=== PATIENT | female | born 1995 | race Caucasian/White ===

== ENCOUNTER → 2016-11-13 | Emergency (ER) | payer OTHER ==
[~2016-11-13] MED LIST: ONDA4 PO; PROM25TA5 PO
--- NOTE | 2016-11-13 17:21 | PD ---
HPI Chief Complaint confirmation of viability w/ ultrasound Date Seen: Nov 13, 2016 Time Seen: 16:45 (Nigel Miller MD R1) Travel History International Travel<30 Days: No Contact w/Intl Traveler<30Days: No (Nigel Miller MD) History of Present Illness HPI 21 y/o female at 19 weeks presents to ED from [facility] for confirmation of viability and ultrasound sent back with her. She has a history of subutex abuse, was taking 2mg daily. She was detoxing and then relapsed to Dilaudid, which she was sent to [facility]. She was released today. Was seen a week ago for a ultrasound with Dr. Villalobos. Denies any problems with this , no complaints today, just needed to be confirmed by [facility]. Denies vaginal bleeding, loss of fluids, contractions. Endorses movement. Denies any chest pain, SOB, abdominal pain, leg pain/swelling. Para: 1 : 3 : 1 (Nigel Miller MD) History Past Medical History Medical History: Denies Significant Hx (Nigel Miller MD) Obstetric History Obstetric History - at term - (Nigel Miller MD) Past Surgical History Surgical History: No Previous Surgery (Nigel Miller MD) Family History Family History: Negative (Nigel Miller MD) Social History Alcohol Use: No Tobacco Use: No Substance Abuse: Yes (Nigel Miller MD) Allergies-Medications (Allergen,Severity, Reaction): Coded Allergies: Bee Sting (Verified Allergy, Severe, Swelling, 11/29/13) Cat Dander (Verified Allergy, Severe, Swelling, 11/29/13) Dust (Verified Allergy, Severe, Swelling, 11/29/13) Home Meds Active Scripts Promethazine 25 mg (Phenergan 25 mg)25 Mg Tab25 Mg PO Q6H PRN (NAUSEA) #10 TAB Prov:Nani Brown MD 11/13/13 Ondansetron Hcl (Zofran 4 Mg Tab)4 Mg Tab4 Mg PO q6h PRN (NAUSEA) #10 TAB Prov:Nani Brown MD 11/13/13 Review of Systems General / Constitutional: Weight Gain, No: Fever, Chills Eyes: No: Pain HENT: No: Headaches Cardiovascular: No: Irregular Rhythm, Chest Pain or Discomfort, Palpitations Respiratory: No: Cough, Short of Breath Gastrointestinal: No: Nausea, Vomiting, Diarrhea, Abdominal Pain, Constipation Genitourinary: Pelvic Pain, No: Urgency, Frequency, Dysuria Musculoskeletal: No: Limited ROM, Weakness Skin: No Rash, No Itching Neurologic: No: Weakness, Dizziness Psychiatric: No: Anxiety, Depression (Nigel Miller MD R1) Physical Exam Narrative GENERAL: Well-nourished, well-developed patient. SKIN: Warm and dry. HEAD: Normocephalic and atraumatic. EYES: No scleral icterus. No injection or drainage. ENT: No nasal drainage noted. Mucous membranes pink. Airway patent. NECK: Supple, trachea midline. No JVD. CARDIOVASCULAR: Regular rate and rhythm without murmurs, gallops, or rubs. RESPIRATORY: Breath sounds equal bilaterally. No accessory muscle use. ABDOMEN/GI: Abdomen soft, non-tender, bowel sounds present, no rebound, no guarding Gravid to 19 weeks size Uterine Contractions: none EXTREMITIES: No cyanosis or edema. BACK: Nontender without obvious deformity. No CVA tenderness. NEUROLOGICAL: Awake and alert. Motor and sensory grossly within normal limits. Five out of 5 muscle strength in all muscle groups. Normal speech. (Nigel Miller MD R1) Data Data Vital Signs Reviewed: Yes (Nigel Miller MD R1) [facility] Medical Record Reviewed: Yes Interpretation(s) 21 y/o at 19 weeks presents from [facility] for confirmation of viability/ultrasound. Denies any other complaints. FHT 145. No contractions on monitor. Viable Vital signs stable Ultrasound was done last week in Dr. Rai's office. Plan - Continue care - is viable with positive heart tones - Ultrasound done last week, positive for IUP - Follow-up with Dr. Monaco - Return to ED if worsening symptoms, signs of labor (Nigel Miller MD R1) Attending Attestation 19 weeks with substance abuse Patient en route to [facility] for detox and will f/u at [facility] care with Dr. Benitez, last seen one week ago with normal US Here for viability check. +FHR No concerns or complaints. D/c into attendants custody. (Rach Sierra MD) Diagnosis Diagnosis: Primary Impression: 19 weeks gestation of Additional Impressions: Viable Qualified Code: Z34.92 - Viable , second trimester High risk due to maternal drug abuse in second trimester Disposition: 01 DISCHARGE HOME Condition: Stable Patient Instructions: General Instructions Nigel Miller MD R1 Nov 13, 2016 17:21 Rach Sierra MD Nov 13, 2016 21:15
== END | disposition home or self-care (01) ==
LOC: HOBED 16:01
DX: O26.92 Pregnancy related conditions, unspecified, second trimester (principal); O09.892 Supervision of other high risk pregnancies, second trimester; Z3A.19 19 weeks gestation of pregnancy
CPT/HCPCS: 99284

== ENCOUNTER 2017-02-23 12:15 | Emergency (ER) | payer OTHER ==
[~2017-02-23] VITALS: Ht 160 cm; Wt 88.9 kg
[2017-02-23 13:00] VITALS: PULSE 92
[2017-02-23] MEDS ORDERED: LACTATED RINGER'S 1000 ML INJ 1,000 ML IV ONE (13:00)
[2017-02-23] MEDS ORDERED: DEXTROSE 5%-LACTATED RING INJ 1,000 ML IV ONE (13:00)
--- NOTE | 2017-02-23 13:03 | PD ---
HPI Chief Complaint Nausea, vomiting, abdominal pain Travel History International Travel<30 Days: No Contact w/Intl Traveler<30Days: No Known Affected Area: No History of Present Illness HPI 21y/o , IPUP at 34w records reviewed, PNC complicated by: 1. IVDA 2. Hep C positive 3. Prior C/S 4. Living at [facility] 5. h/o EAB 6. h/o tobacco but d/c BUFA Patient presents c/o onset of N/V and abdominal pain last night at 6pm. She denies any abnormal food ingestion but reports that several other women at [facility] where she lives have recently been ill with the same type of illness. She denies any F/C. She denies any diarrhea. She reports she has been unable to tolerate any po since 6pm and last threw up on her way here. SHe reports the abdominal cramping is mostly left lower quadrant but has some radiation to her side. She denies any urinary complaints but reports she has been unable to void all day. She reports normal and good FM. She denies any painful ctx or uterine cramping. She denies any LOF or VB. Para: 1 : 3 : 1 History Past Medical History Narrative Medical Hep C from h/o IVDA Obstetric History Obstetric History FT C/S x1 SAB x1 Past Surgical History Narrative Surgical C/S Tonsillectomy Drainage of renal abscess Family History Narrative Family History DM COPD Social History Narrative Social History Denies tobacco at this time but h/o tobacco use Denies EtOH H/o marijuana H/o IVDA Allergies-Medications (Allergen,Severity, Reaction): Coded Allergies: Bee Sting (Verified Allergy, Severe, Swelling, 02/23/17) Cat Dander (Verified Allergy, Severe, Swelling, 02/23/17) Dust (Verified Allergy, Severe, Swelling, 02/23/17) Home Meds No Active Prescriptions or Reported Meds Review of Systems Except as stated in HPI: all other systems reviewed are Neg (See HPI) Gastrointestinal: Nausea, Vomiting, Abdominal Pain Physical Exam Narrative VSS AF, A&Ox3 GENERAL: Well-nourished, well-developed patient. SKIN: Warm and dry. HEAD: Normocephalic and atraumatic. EYES: No scleral icterus. No injection or drainage. ENT: No nasal drainage noted. Mucous membranes pink. Airway patent. NECK: Supple, trachea midline. No JVD. CARDIOVASCULAR: Regular rate and rhythm without murmurs, gallops, or rubs. RESPIRATORY: Breath sounds equal bilaterally. No accessory muscle use. BREASTS: Deferred. ABDOMEN/GI: Abdomen soft, non-tender, bowel sounds present, no rebound, no guarding Gravid GENITOURINARY: Deferred Uterine Contractions: [-] FHT's: Category: [-] Baseline: [-] Reactive: [-] Variability: [-] Decels: [-] EXTREMITIES: No cyanosis or edema. BACK: Nontender without obvious deformity. No CVA tenderness. NEUROLOGICAL: Awake and alert. Motor and sensory grossly within normal limits. Five out of 5 muscle strength in all muscle groups. Normal speech MS grossly normal ROM, gait, muscle strength PSYCH: grossly normal memory/affect SKIN: warm/dry, no rashes/lesions noted. Data Data Orders Dextrose 5%-Lactated Ring Inj (D5-Lr Inj (02/23/17 13:00) Lactated Ringer's 1000 Ml Inj (Lr 1000 M (02/23/17 13:00) Vital Signs (Adult) .ON ADMISSION (02/23/17 12:57) ^ Labor Status (02/23/17 12:57) Urinalysis - C+S If Indicated (02/23/17 12:57) ^ Non Stress Test (02/23/17 12:57) Cbc No Diff, Includes Plts (02/23/17 12:57) Comprehensive Metabolic Panel (02/23/17 12:57) Ondansetron Inj (Zofran Inj) (02/23/17 13:00) MDM Plan A/P: 21y/o 1. IUP at 34w 2. N/V consistent with gastroenteritis: patient feels significantly better after 2L IVF and IV Zofran. Patient was able to tolerate a po challenge after IVF/Zofran. K 3.6 (low normal), will Rx KCL 20meq tonight and repeat in am. Encourage BRAT diet and other foods that are easily tolerated like toast, chicken noodle soup, etc. Strict N/V precautions. Rx called into [facility]. 3. IVDA: at [facility] 4. hepatitis C 5. wellbeing: reassuring testing with reactive NST, FHR reassuring and appropriate for gestational age 6. F/U with primary Ob in 2-3d or sooner if needed 7. prior C/S: to be scheduled for repeat 8. BUFA 9. Tobacco d/c Diagnosis Diagnosis: Primary Impression: 34 weeks gestation of Additional Impression: Gastroenteritis Disposition: DISCHARGE HOME Scripts No Active Prescriptions or Reported Meds Patient Instructions: Abdominal Pain in (ED), Nausea and Vomiting in (ED), Labor (ED) Additional Instructions: BRAT diet Kcl 20meq tonight and in am with crackers as tolerated Zofran ODT 4mg q6h as needed FKC daily F/U with primary OB in 2-3d or sooner if needed Sofy Jay MD Feb 23, 2017 13:03
[2017-02-23 13:05] VITALS: PULSE 88
[2017-02-23 13:06] VITALS: BP 114/61; PULSE 97
[2017-02-23 13:10] VITALS: PULSE 93
[2017-02-23 13:13] VITALS: RESP 18; TEMP 99.1
[2017-02-23] MEDS ORDERED: ONDANSETRON HCL 4 MG/2 ML VIAL IV ONE (13:30)
[2017-02-23 13:53] LABS: MEAN CELL VOLUME 85.5 FL (80.0-100.0); MEAN CORPUSCULAR HEMOGLOBIN 29.7 PG (27.0-34.0); MEAN CORPUSCULAR HGB CONC 34.8 % (32.0-36.0); PLATELET COUNT 164 TH/MM3 (150-450); RED BLOOD COUNT 4.33 MIL/MM3 (4.00-5.30); RED CELL DISTRIBUTION WIDTH 13.3 % (11.6-17.2); REVIEW FLAG FINAL
[2017-02-23 14:15] LABS: ANION GAP 10 MEQ/L (5-15); AST (GOT) 13 U/L (15-37); BICARBONATE 22.6 MEQ/L (21.0-32.0); BLOOD UREA NITROGEN 11 MG/DL (7-18); CHLORIDE 104 MEQ/L (98-107); GLOMERULAR FILTRATION RATE 204 ML/MIN (>89); POTASSIUM 3.6 MEQ/L (3.5-5.1); SODIUM (NA) 137 MEQ/L (136-145)
[2017-02-23 14:16] LABS: ALT (GPT) 13 U/L (10-53)
[2017-02-23 14:18] LABS: ALKALINE PHOSPHATASE 83 U/L (45-117); TOTAL BILIRUBIN ADULT 0.4 MG/DL (0.2-1.0)
--- NOTE | 2017-02-23 14:56 | HHI.PR ---
Subjective Remarks NST report Indication: IUP at34w, N/V/Dehydration, h/o IVDA Baseline: 140s Variability: good, moderate LTV with good accels and no decels CTX: no regular ctx Reactive NST Final dx: IUP at 34w, gastroenteritis, reassuring testing F/U as clinically indicated Objective Vital Signs Date Time Temp Pulse Resp B/P Pulse Ox O2 Delivery O2 Flow Rate FiO2 02/23/17 13:13 99.1 18 02/23/17 13:10 93 02/23/17 13:06 97 114/61 02/23/17 13:05 88 02/23/17 13:00 92 Result Diagram: 02/23/17 1325 02/23/17 1325 Sofy Jay MD Feb 23, 2017 14:56
[2017-02-23 15:08] LABS: BLOOD, URINE NEG (NEG); COMMENT (UR) CULT NOT INDICATED; CULTURE IF INDICATED CULT NOT INDICATED; GLUCOSE,URINE 1000 mg/dL (NEG); KETONE, URINE 80 mg/dL (NEG); MUCUS URINE FEW /lpf (OCC); NITRITE,URINE NEG (NEG); SQUAMOUS EPITHELIAL CELL URINE 1 /hpf (0-5); URINE COLOR YELLOW (YELLW/STRAW)
[2017-04-16] MEDS ORDERED: IBUP-232 PO (15:23)
[2017-05-06] MEDS ORDERED: LEVO1IUD4 (14:03)
[2017-05-06] MEDS ORDERED: METR-1 PO (14:03)
== END 2017-02-23 16:55 | disposition home or self-care (01) ==
LOC: HOBED 12:15
DX: O98.413 Viral hepatitis complicating pregnancy, third trimester (principal); O26.893 Other specified pregnancy related conditions, third trimester; B19.20 Unspecified viral hepatitis C without hepatic coma; E86.0 Dehydration; K52.9 Noninfective gastroenteritis and colitis, unspecified; Z3A.34 34 weeks gestation of pregnancy; Z87.891 Personal history of nicotine dependence
CPT/HCPCS: 59025; 80053; 81001; 85027; 96374; 99284; J2405; J3010; J7120; J7121

== ENCOUNTER 2017-04-02 09:52 | Inpatient (IN) | payer OTHER ==
[2017-04-02] VITALS (20 sets, daily range): BP systolic 111–129; BP diastolic 58–72; PULSE 68–95; RESP 16–20; TEMP 97.8–99.2; O2SAT 98–100
[~2017-04-02] VITALS: Ht 162.6 cm; Wt 90.7 kg
[2017-04-02] MEDS ORDERED: LACTATED RINGER'S 1000 ML INJ 1,000 ML IV ONE (10:30)
[2017-04-02] MEDS ORDERED: OXYTOCIN 10 UNIT/ML AMP ONE (10:52)
--- NOTE | 2017-04-02 11:18 | HHI.HP ---
HPI Chief Complaint Scheduled Date Seen: Apr 02, 2017 (Darell Walters MD R2) Travel History International Travel<30 Days: No Contact w/Intl Traveler<30Days: No (Darell Walters MD R2) History of Present Illness HPI Ms. Saab is a 21-year-old at 39 weeks gestation presenting for scheduled repeat . Patient [facility]. thus far has been uncomplicated. Her consult was completed by Dr. Jay on 03/18/17. Of note past medical history significant for hepatitis C. Per patient last viral load was undetectable and she has not received treatment. She has a history of IV drug abuse including this . She states that she used IV Dilaudid during the first trimester , and then was transitioned to Subutex by Dr. Hopkins during the beginning of the second trimester. Patient was weaned off Subutex and has been medication 44 over 4 months. Postoperatively she wishes to avoid narcotics as much as possible. She endorses good movement and denies any vaginal bleeding, discharge, or loss of fluid. She denies any fevers, chills, shortness of breath , chest pain, NVD, abdominal pain, or calf tenderness including a complete review of systems. Of note, baby will be taken for adoption after the . (Darell Walters MD R2) History Past Medical History Narrative Medical Hepatitis C s/p IV drug abuse with Dilaudid during first trimester Obesity (Darell Walters MD R2) Obstetric History Obstetric History First - elective without complication Second - uncomplicated full-term due to failure to progress Third - uncomplicated thus far (IV drug abuse during first trimester, weaned to Subutex, medication 4 months greater than 4 months post per patient (Darell Walters MD R2) Past Surgical History Narrative Surgical Uncomplicated Uncomplicated tonsillectomy (Darell Walters MD R2) Family History Narrative Family History Diabetes mellitus, lung cancer, CAD (Darell Walters MD R2) Social History Narrative Social History Patient endorses no alcohol use during . Patient endorses less than a pack per day smoking during first trimester, currently not smoking. Patient endorses first trimester IV drug abuse with Dilaudid, was weaned to Subutex during second trimester, and currently is off all medications for the past 4 months per patient. She denies diagnosis of previous endocarditis. (Darell Walters MD R2) Allergies-Medications (Allergen,Severity, Reaction): Coded Allergies: bee venom protein (honey bee) (Unverified Allergy, Severe, Swelling, ) cat dander (Unverified Allergy, Severe, Swelling, 03/25/17) house dust (Unverified Allergy, Severe, Swelling, 03/25/17) Home Meds No Active Prescriptions or Reported Meds Review of Systems Except as stated in HPI: all other systems reviewed are Neg (Darell Walters MD R2) Physical Exam Vital Signs Date Time Temp Pulse Resp B/P (MAP) Pulse Ox O2 Delivery O2 Flow Rate FiO2 04/02/17 10:43 98.4 04/02/17 10:43 18 04/02/17 10:40 72 04/02/17 10:36 70 111/68 (82) 04/02/17 10:35 73 Narrative GENERAL: Well-nourished, well-developed patient. SKIN: Warm and dry. HEAD: Normocephalic and atraumatic. EYES: No scleral icterus. No injection or drainage. ENT: No nasal drainage noted. Mucous membranes pink. Airway patent. NECK: Supple, trachea midline. No JVD. CARDIOVASCULAR: Regular rate and rhythm without murmurs, gallops, or rubs. RESPIRATORY: Breath sounds equal bilaterally. No accessory muscle use. ABDOMEN/GI: Abdomen soft, non-tender, bowel sounds present, no rebound, no guarding Gravid to 39 FHT's: Category: 1 Baseline: 140s Reactive: Positive Variability: Moderate Decels: Negative EXTREMITIES: No cyanosis or edema. BACK: Nontender without obvious deformity. No CVA tenderness. NEUROLOGICAL: Awake and alert. Motor and sensory grossly within normal limits. Five out of 5 muscle strength in all muscle groups. Normal speech. (Darell Walters MD R2) Caprini VTE Risk Assessment Caprini VTE Risk Assessment: Mod/High Risk (score >= 2) Caprini Risk Assessment Model Point Value = 1 Point Value = 2 Point Value = 3 Point Value = 5 Age 41-60 Minor surgery BMI > 25 kg/m2 Swollen legs Varicose veins or History of unexplained or recurrent spontaneous Oral contraceptives or hormone replacement Sepsis (< 1 month) Serious lung disease, including pneumonia (< 1 month) Abnormal pulmonary function Acute myocardial infarction Congestive heart failure (< 1 month) History of inflammatory bowel disease Medical patient at bed rest Age 61-74 Arthroscopic surgery Major open surgery (> 45 min) Laparoscopic surgery (> 45 min) Malignancy Confined to bed (> 72 hours) Immobilizing plaster cast Central venous access Age >= 75 History of VTE Family history of VTE Factor V Leiden Prothrombin [id number] Lupus anticoagulant Anticardiolipin antibodies Elevated serum homocysteine Heparin-induced thrombocytopenia Other congenital or acquired thrombophilia Stroke (< 1 month) Elective arthroplasty Hip, pelvis, or leg fracture Acute spinal cord injury (< 1 month) Prophylaxis Regimen Total Risk Factor Score Risk Level Prophylaxis Regimen 0-1 Low Early ambulation 2 Moderate Order ONE of the following: *Sequential Compression Device (SCD) *Heparin 5000 units SQ BID 3-4 Higher Order ONE of the following medications: *Heparin 5000 units SQ TID *Enoxaparin/Lovenox 40 mg SQ daily (WT < 150 kg, CrCl > 30 mL/min) *Enoxaparin/Lovenox 30 mg SQ daily (WT < 150 kg, CrCl > 10-29 mL/min) *Enoxaparin/Lovenox 30 mg SQ BID (WT < 150 kg, CrCl > 30 mL/min) AND/OR *Sequential Compression Device (SCD) 5 or more Highest Order ONE of the following medications: *Heparin 5000 units SQ TID (Preferred with Epidurals) *Enoxaparin/Lovenox 40 mg SQ daily (WT < 150 kg, CrCl > 30 mL/min) *Enoxaparin/Lovenox 30 mg SQ daily (WT < 150 kg, CrCl > 10-29 mL/min) *Enoxaparin/Lovenox 30 mg SQ BID (WT < 150 kg, CrCl > 30 mL/min) AND *Sequential Compression Device (SCD) (Darell Walters MD R2) Data Data Vital Signs Reviewed: Yes Orders Orders Admit To Inpatient (04/02/17 ) Code Status (04/02/17 10:30) Vital Signs (Adult) .ON ADMISSION (04/02/17 10:30) Activity Oob Ad Michelle (04/02/17 10:30) Heart (04/02/17 10:30) Urinary Catheter Management YENY.Q8H (04/02/17 10:30) ^ Preps (04/02/17 10:30) Scd / Danilo / Foot Pump YENY.QSHIFT (04/02/17 10:30) ^ Ultrasound For Locatio (04/02/17 10:30) Diet Npo (04/02/17 Lunch) Lactated Ringer's 1000 Ml Inj (Lr 1000 M (04/02/17 10:30) Lactated Ringer's 1000 Ml Inj (Lr 1000 M (04/02/17 11:00) Cefazolin 2 Gm Premix (Ancef 2 Gm Premix (04/02/17 11:30) Citric Acid-Sodium Citrate Liq (Bicitra (04/02/17 12:00) Type And Screen (04/02/17 10:30) Complete Blood Count With Diff (04/02/17 10:30) Urinalysis - C+S If Indicated (04/02/17 10:30) Inpatient Certification (04/02/17 ) Specimen To Be Collected PRN (04/02/17 10:30) Oxytocin Inj (Pitocin Inj) (04/02/17 10:52) (Darell Walters MD R2) Assessment/Plan Problem List: (1) 39 weeks gestation of ICD Codes: Z3A.39 - 39 weeks gestation of (2) Previous section ICD Codes: Z98.891 - History of uterine scar from previous surgery Assessment and Plan Ms. Cooper is a 21-year-old presenting at 39 weeks gestation for repeat 1. IUP at 39 weeks -Continue routine antepartum care - heart tracing category 1, reassuring -Patient to be admitted for repeat , orders placed 2. History of IV drug abuse -Urine drug screen ordered Social: Baby to be taken for adoption post-. SDW: Dr. Hernandez Discharge Planning Pending clinical course (Darell Walters MD R2) Attestation Patient seen and examined. Desires repeat C/S. Patient with history of Hepatitis C and drug use this . Patient plans to place upon for adoption. Will request case management consult. (Kirsty Hernandez MD) Darell Walters MD R2 Apr 02, 2017 11:18 Kirsty Hernandez MD Apr 02, 2017 11:55
[2017-04-02] MEDS ORDERED: ceFAZolin 2 GM PREMIX 50 ML IV SCH (11:30)
[2017-04-02 11:40] LABS: AUTOMATED NEUTROPHIL # 6.4 TH/MM3 (1.8-7.7); BASOPHIL % 0.4 % (0.0-2.0); EOSINOPHIL # 0.3 TH/MM3 (0-0.4); EOSINOPHIL % 3.2 % (0.0-4.0); HEMATOCRIT 34.8 % (35.0-46.0); HEMO FLAGS DIFF FINAL; LYMPH % 19.9 % (9.0-44.0); LYMPHOCYTE # 1.9 TH/MM3 (1.0-4.8); MEAN CELL VOLUME 84.8 FL (80.0-100.0); MEAN CORPUSCULAR HEMOGLOBIN 28.7 PG (27.0-34.0); MEAN CORPUSCULAR HGB CONC 33.8 % (32.0-36.0); MONO % 8.7 % (0.0-8.0); NEUT % 67.8 % (16.0-70.0); PLATELET COUNT 154 TH/MM3 (150-450); RED BLOOD COUNT 4.11 MIL/MM3 (4.00-5.30); RED CELL DISTRIBUTION WIDTH 14.1 % (11.6-17.2); WHITE BLOOD COUNT 9.4 TH/MM3 (4.0-11.0)
[2017-04-02] MEDS ORDERED: CITRIC ACID-SODIUM CITRATE LIQ 30 ML UDC PO SCH (12:00)
[2017-04-02 12:15] LABS: BACTERIA, URINE OCC /hpf; BLOOD, URINE NEG (NEG); COMMENT (UR) CULT NOT INDICATED; CULTURE IF INDICATED CULT NOT INDICATED; GLUCOSE,URINE NEG (NEG); KETONE, URINE NEG (NEG); NITRITE,URINE NEG (NEG); PH, URINE 6.5 (5.0-8.5); SQUAMOUS EPITHELIAL CELL URINE 5 /hpf (0-5); URINE COLOR YELLOW (YELLW/STRAW)
[2017-04-02] MEDS: LACTATED RINGER'S 1000 ML INJ 1,000 ML IV SCH (12:18)
[2017-04-02] MEDS ORDERED: EPIDURAL-NALOXONE HCL 0.4 MG/ML AMP IV PUSH PRN (12:30)
[2017-04-02] MEDS ORDERED: EPIDURAL-DO NOT ADMINISTER ANTICOAGULANTS PRN (12:30)
[2017-04-02] MEDS ORDERED: EPIDURAL-NO SYSTEMIC NARCOTICS PRN (12:30)
[2017-04-02] MEDS ORDERED: EPIDURAL-DIPHENHYDRAMINE HCL 50 MG/ML VIAL IV PUSH PRN (12:30)
[2017-04-02] MEDS ORDERED: MORPHINE SULFATE PF 5 MG/10 ML VIAL ONE (13:40)
--- NOTE | 2017-04-02 14:11 | PD.OB.DELI ---
Procedure Note Section Procedure Pre Op Diagnosis: (1) 39 weeks gestation of (2) High risk due to maternal drug abuse in second trimester (3) Previous section Post Op Diagnosis: (1) 39 weeks gestation of (2) High risk due to maternal drug abuse in second trimester (3) Previous section Performed by Kirsty Hernandez Procedure: Repeat Low Transverse Sec Indication for delivery: Desired elective repeat Previous condition: None Informed consent obtained: For procedure Confirmed correct: Time-out taken Anesthesia: Spinal Urinary catheter: ml urine output (300) Sterile preparation: With 2% chlorexidine (Hibiclens) Position: Supine Operative Features Skin Incision: Pfannenstiel Uterine Incision: Low transverse w/knife / blunt ext Membranes Ruptured: Appearance of fluid Presentation: Vertex Delivery date: Apr 02, 2017 Delivery time: 12:56 Delivery of : Uneventful : Female One Minute : 8 Five Minute : 9 Weight: 6# 15oz Status of infant: Viable Placenta delivered: Intact Medications: Antibiotics, Oxytocin Estimated blood loss: 300ml Procedure tolerated: Well Maternal Condition: Stable Condition: Stable Procedure in detail Dictated Kirsty Hernandez MD Apr 02, 2017 14:11
[2017-04-02] MEDS ORDERED: SODIUM CHLORIDE 0.9% FLUSH 10 ML FLUSH IV FLUSH PRN (14:15)
[2017-04-02] MEDS ORDERED: IBUPROFEN 600 MG TAB PO PRN (14:15)
[2017-04-02] MEDS ORDERED: OXYTOCIN 30 UNITS-500ML PREMIX 500 ML IV ONE (14:15)
[2017-04-02] MEDS ORDERED: oxyCODONE/ACETAMINOPHEN 5 MG/325 MG TAB PO PRN ×2 (14:15)
[2017-04-02] MEDS ORDERED: ONDANSETRON HCL 4 MG/2 ML VIAL IV PUSH PRN (14:15)
[2017-04-02] MEDS ORDERED: diphenhydrAMINE HCL 25 MG CAP PO PRN (15:45)
[2017-04-02] MEDS ORDERED: diphenhydrAMINE HCL 50 MG/ML VIAL IV PRN (17:00)
[2017-04-02] MEDS ORDERED: LACTATED RINGER'S 1000 ML INJ 1,000 ML IV SCH (19:11)
[2017-04-02] MEDS: KETOROLAC TROMETHAMINE 30 MG/ML (IVP) VIAL IV PUSH PRN (22:21)
[2017-04-03] VITALS: BP 102/49; PULSE 68; RESP 18; TEMP 98.9
[2017-04-03] MEDS ORDERED: OXYTOCIN 30 UNITS-500ML PREMIX 500 ML IV PRN (00:15)
[2017-04-03] MEDS: EPIDURAL-DIPHENHYDRAMINE HCL 50 MG CAP PO PRN ×2 (00:47→06:38)
[2017-04-03 03:56] LABS: AUTOMATED NEUTROPHIL # 6.8 TH/MM3 (1.8-7.7); BASOPHIL % 0.3 % (0.0-2.0); EOSINOPHIL # 0.4 TH/MM3 (0-0.4); EOSINOPHIL % 3.5 % (0.0-4.0); HEMATOCRIT 31.5 % (35.0-46.0); HEMO FLAGS DIFF FINAL; LYMPH % 18.7 % (9.0-44.0); MEAN CELL VOLUME 86.4 FL (80.0-100.0); MEAN CORPUSCULAR HEMOGLOBIN 29.3 PG (27.0-34.0); MEAN CORPUSCULAR HGB CONC 33.9 % (32.0-36.0); NEUT % 64.5 % (16.0-70.0); PLATELET COUNT 116 TH/MM3 (150-450); RED BLOOD COUNT 3.65 MIL/MM3 (4.00-5.30); WHITE BLOOD COUNT 10.6 TH/MM3 (4.0-11.0)
[2017-04-03 04:05] VITALS: BP 126/66; PULSE 64; RESP 20; TEMP 98.1
[2017-04-03] MEDS: KETOROLAC TROMETHAMINE 30 MG/ML (IVP) VIAL IV PUSH PRN (06:38)
--- NOTE | 2017-04-03 08:08 | HHI.OB ---
Subjective Post Operative Day: 1 Remarks Pt seen and examined this morning. day # 1 AFVSS overnight. Incision nondraining. Decreased lochia. Denies dysuria. No breast tenderness. Appetite good. No nausea or vomiting. Patient has not yet had a bowel movement, or past bowel gas. Ambulating well. Denies calf pain or shortness of breath. Otherwise , she is doing well this morning and has no other concerns. (Darell Walters MD R2) Attestation Patient seen and examined. Agree with resident's assessment and plan. Case management consult regarding infant adoption. (Kirsty Hernandez MD) Objective Vitals/I&O Vital Signs Date Time Temp Pulse Resp B/P (MAP) Pulse Ox O2 Delivery O2 Flow Rate FiO2 04/03/17 04:05 98.1 20 04/03/17 04:05 64 126/66 (86) 04/03/17 00:00 98.9 68 18 102/49 (66) 04/02/17 20:00 99.2 82 20 124/68 (86) 04/02/17 15:15 97.8 68 16 117/72 (87) 04/02/17 14:34 98.0 70 100 04/02/17 14:33 118/58 (78) 04/02/17 14:33 18 04/02/17 14:18 83 18 119/58 (78) 100 04/02/17 14:04 83 18 128/58 (81) 99 04/02/17 13:45 97.9 04/02/17 13:45 95 129/60 (83) 04/02/17 13:45 18 98 04/02/17 11:25 76 04/02/17 11:20 74 04/02/17 11:15 73 04/02/17 11:10 75 04/02/17 11:05 83 04/02/17 11:00 73 04/02/17 10:55 72 04/02/17 10:50 73 04/02/17 10:45 71 04/02/17 10:43 98.4 04/02/17 10:43 18 04/02/17 10:40 72 04/02/17 10:36 70 111/68 (82) 04/02/17 10:35 73 (Darell Walters MD R2) Result Diagram: 04/03/17 1538 Objective Remarks GENERAL: Well-nourished, well-developed patient. CARDIOVASCULAR: Regular rate and rhythm without murmurs, gallops, or rubs. RESPIRATORY: Breath sounds equal bilaterally. No accessory muscle use. ABDOMEN/GI: Abdomen soft, non-tender, bowel sounds present. Incision: Clean, dry and intact. Fundus: Firm, non-tender at umbilicus. GENITOURINARY: Light to moderate bleeding. EXTREMITIES: No cyanosis or edema, non-tender, without signs of DVT. Medications and IVs Current Medications Medications (Trade) Dose Ordered Sig/Piyush Route Start Time Stop Time Status Last Admin Lactated Ringer's 1,000 ml @ 150 mls/hr Q6H40M IV 04/02/17 11:00 04/02/17 12:18 Cefazolin Sodium/ Dextrose 50 ml @ 100 mls/hr [employer] IV 04/02/17 11:30 04/06/17 11:29 04/02/17 12:17 (Bicitra Liq) 30 ml [employer] PROFESSOR PO 04/02/17 12:00 04/06/17 11:59 04/02/17 12:17 Lactated Ringer's 1,000 ml @ 100 mls/hr Q10H IV 04/02/17 19:11 04/03/17 15:10 Oxytocin 500 ml @ 100 mls/hr UNSCH X1 PRN IV 04/03/17 00:15 04/04/17 00:14 (NS Flush) 2 ml BID IV FLUSH 04/02/17 21:00 (NS Flush) 2 ml UNSCH PRN IV FLUSH 04/02/17 14:15 (Mylicon Chew) 80 mg QID PRN PO 04/02/17 14:15 (Motrin) 600 mg Q6H PRN PO 04/02/17 14:15 Future Hold (Percocet 5-325 Mg) 1 tab Q4H PRN PO 04/02/17 14:15 (Percocet 5-325 Mg) 2 tab Q4H PRN PO 04/02/17 14:15 (M-M-R Ii Inj) 0.5 ml ONCE ONCE SQ 04/03/17 16:00 04/03/17 16:01 (Boostrix Inj) 0.5 ml ONCE ONCE IM 04/03/17 16:00 04/03/17 16:01 (Zofran Inj) 4 mg Q6H PRN IV PUSH 04/02/17 14:15 (Benadryl) 25 mg Q6H PRN PO 04/02/17 15:45 (Toradol Inj) 30 mg Q8HR PRN IV PUSH 04/02/17 15:45 04/07/17 15:44 04/03/17 06:38 Miscellaneous Information NO SYSTEMIC NARCOTICS TO BE GIVEN FO... UNSCH PRN .XX 04/02/17 12:30 04/03/17 12:29 (Narcan Inj) 0.4 mg UNSCH PRN IV PUSH 04/02/17 12:30 04/03/17 12:29 (Benadryl Inj) 25 mg Q6H PRN IV PUSH 04/02/17 12:30 04/03/17 12:29 (Benadryl) 50 mg Q6H PRN PO 04/02/17 12:30 04/03/17 12:29 04/03/17 06:38 Miscellaneous Information ALL NURSING DEPARTMENTS UNSCH PRN .XX 04/02/17 12:30 04/03/17 12:29 (Benadryl Inj) 25 mg Q6H PRN IV 04/02/17 17:00 04/02/17 16:42 (Darell Walters MD R2) Assessment/Plan Problem List: (1) 39 weeks gestation of ICD Codes: Z3A.39 - 39 weeks gestation of (2) Previous section ICD Codes: Z98.891 - History of uterine scar from previous surgery Assessment and Plan 21y/o female who is postop day # 1 s/p repeat . -Continue routine care. -Patient would like to avoid narcotics due to past history of IV drug abuse, continue by mouth portal and Tylenol. -Encouraged OOB. Advised pelvic rest for 6 wks. will need follow-up appointment in 1 week for incision check. -Re: ctrl, she would like discussed her options at her follow-up appointment. -Anticipate discharge in 1-2 days pending clinical course. -Of note, baby will be taken for adoption. pam Hernandez MD Discharge Planning In the next 1-2 days pending clinical course (Darell Walters MD R2) Darell Walters MD R2 Apr 03, 2017 08:08 Kirsty Hernandez MD Apr 03, 2017 09:01
[2017-04-03 09:20] VITALS: BP 117/73; PULSE 63; RESP 16; TEMP 97.7
[2017-04-03] MEDS: ACETAMINOPHEN 325 MG TAB PO PRN ×2 (10:09→18:18)
[2017-04-03 10:27] LABS: ALT (GPT) 13 U/L (10-53); ANION GAP 8 MEQ/L (5-15); AST (GOT) 19 U/L (15-37); BICARBONATE 23.9 MEQ/L (21.0-32.0); BLOOD UREA NITROGEN 7 MG/DL (7-18); CHLORIDE 108 MEQ/L (98-107); GLOMERULAR FILTRATION RATE 90 ML/MIN (>89); POTASSIUM 4.1 MEQ/L (3.5-5.1); SODIUM (NA) 140 MEQ/L (136-145)
[2017-04-03 10:30] LABS: ALKALINE PHOSPHATASE 122 U/L (45-117); TOTAL BILIRUBIN ADULT 0.3 MG/DL (0.2-1.0)
[2017-04-03] MEDS ORDERED: BENZOCAINE 20% TOPICAL SPRAY 60 ML CAN TOPICAL PRN (12:00)
[2017-04-03] MEDS ORDERED: WITCH HAZEL 50%/GLYCERIN 12.5% 40 PAD JAR TOPICAL PRN (12:00)
--- NOTE | 2017-04-03 13:31 | MP ---
cc: SILVESTRE HERNANDEZ MD DATE OF SURGERY 04/02/2017 DATE OF 1995 PREOPERATIVE DIAGNOSIS This is a G2, P1 at 39-0/7th weeks, previous section, desiring repeat section with a history of IV drug use and hepatitis C. POSTOPERATIVE DIAGNOSIS This is a G2, P1 at 39-0/7th weeks, previous section, desiring repeat section with a history of IV drug use and hepatitis C. PROCEDURE Repeat low transverse delivery via Pfannenstiel skin incision. SURGEON Silvestre Hernandez MD BRAND COMMUNICATIONS MANAGER: OR tech combination machine tender ANESTHESIA Spinal ESTIMATED BLOOD LOSS 600 cc IV FLUIDS 1000 cc URINE OUTPUT 300 cc clear PROCEDURAL FINDINGS A viable female infant cephalic presentation with a weight of 6 pounds, 15 ounces. Time of delivery 1256 with 's of 8 at one minute and 9 at five minutes. Grossly normal uterus, bilateral fallopian tubes and ovaries. PATHOLOGY Placenta COMPLICATIONS None PROCEDURE The patient was taken to the operating room where spinal anesthesia was obtained without difficulty. She was prepped and draped in the normal sterile fashion. After anesthesia was deemed to be adequate, a Pfannenstiel's skin incision was then made approximately 2 cm above the symphysis pubis and carried down to the underlying layer of the fascia with a knife. The fascia was then incised in the midline and extended laterally. The superior aspect of the fascia was grasped with Jerson clamps, elevated and the muscles were dissected off by sharp and blunt dissection. In a similar fashion, the inferior aspect of the fascia was then grasped with Jerson clamps, elevated and again the muscles were dissected off by sharp and blunt dissection. The rectus muscles were in the midline. The peritoneum was then identified and tented up and then entered. Using Metzenbaum scissors, that incision was then extended superiorly and inferiorly with good visualization of the bladder. A bladder blade was then inserted and the vesicouterine peritoneum was then identified and entered using Metzenbaum scissors and a bladder flap was then created digitally. A bladder blade was inserted into the bladder flap and a transverse incision was then made in the lower uterine aspect, extended by finger fraction. The infant's head was then delivered atraumatically. The mouth and nares were bulb suctioned. Anterior and posterior shoulders were delivered followed by the remainder of the body. The cord was clamped x2, cut and the was handed off to awaiting nursery staff. Attention was then returned to the patient where a three vessel placenta was then removed manually. The uterus was then exteriorized of clot and debris. The uterine incision was then repaired with a #0 Vicryl in a running locked fashion with a second layer imbricated using the same suture. The pelvis was then suctioned with clot and debris removed. The bladder flap was then reapproximated using 3-0 Vicryl in a running continuous fashion. The uterus was then returned to the abdomen. The peritoneum was then reapproximated using 2-0 Vicryl in a running continuous fashion. The rectus muscles were reapproximated using 2-0 Vicryl in a U-stitch times two with good hemostasis noted. The fascial incision was then reapproximated using #0 PDS in a running continuous fashion. The subcutaneous adipose tissue was then irrigated, made hemostatic using the cautery where needed and then reapproximated in a running continuous fashion in two layers with 2-0 plain gut with hemostasis noted. The skin was then reapproximated using 4-0 Vicryl on a Yomi needle in a subcuticular fashion. All sponge, lap, instrument and needle counts were correct x2. Two grams of Ancef were given prior to the start of the procedure and 20 units of Pitocin was administered in one liter of lactated Ringers. The patient was then taken to the recovery room in stable condition. Silvestre Hernandez MD JR/CRISTIAN /2:44 PM /1:02 PM
[2017-04-03] MEDS: KETOROLAC TROMETHAMINE 10 MG TAB PO PRN ×2 (14:16→20:50)
[2017-04-03] MEDS: DOCUSATE SODIUM 50 MG/SENNA 8.6 MG TAB PO PRN (14:17)
[2017-04-03 15:30] VITALS: BP 112/68; PULSE 61; RESP 18; TEMP 97.6
[2017-04-03] MEDS ORDERED: MEASLES, MUMPS, RUBELLA VACCINE 0.5 ML VIAL SQ ONE (16:00)
[2017-04-03] MEDS ORDERED: DIPHTH/TETANUS/ACEL PERTUSSIS (BOOSTER) 0.5 ML VIAL/PFS IM ONE (16:00)
[2017-04-03 20:39] VITALS: BP 121/73; PULSE 65; RESP 18; TEMP 98.5
[2017-04-03] MEDS: SIMETHICONE 80 MG CHEWABLE TAB PO PRN (20:52)
[2017-04-03] MEDS: SODIUM CHLORIDE 0.9% FLUSH 10 ML FLUSH IV FLUSH SCH (21:00)
[2017-04-04] MEDS: ACETAMINOPHEN 325 MG TAB PO PRN ×4 (00:52→21:41)
[2017-04-04] MEDS: KETOROLAC TROMETHAMINE 10 MG TAB PO PRN ×3 (02:54→21:40)
[2017-04-04] MEDS: LACTATED RINGER'S 1000 ML INJ 1,000 ML IV SCH (03:00)
[2017-04-04] MEDS: SIMETHICONE 80 MG CHEWABLE TAB PO PRN (07:46)
[2017-04-04 08:00] VITALS: BP_SYST 125; BP_SYST 126; BP_DIAS 74; BP_DIAS 80; PULSE 58; RESP 16; TEMP 98.4
--- NOTE | 2017-04-04 09:14 | HHI.OB ---
Subjective Post Operative Day: 2 Remarks Pt seen and examined this morning.Postoperative day # 2 AFVSS overnight. Incision not draining. Pt complaining of lower abd pain, rates 7/10. Decreased lochia. Denies dysuria. No breast tenderness. Appetite good. No nausea or vomiting. Patient has had 2 BM and + flatus. Ambulating well. Denies calf pain or shortness of breath. Otherwise, she is doing well this morning and has no other concerns. Objective Vitals/I&O Vital Signs Date Time Temp Pulse Resp B/P (MAP) Pulse Ox O2 Delivery O2 Flow Rate FiO2 04/04/17 01:52 18 04/03/17 21:50 18 04/03/17 20:39 98.5 04/03/17 20:39 65 18 121/73 (89) 04/03/17 15:30 97.6 61 18 112/68 (83) 04/03/17 09:20 117/73 (88) 04/03/17 09:20 97.7 63 16 Result Diagram: 04/03/17 0348 04/03/17 0955 Objective Remarks GENERAL: Well-nourished, well-developed patient. CARDIOVASCULAR: Normal s1 and s2. Regular rate and rhythm without murmurs, gallops, or rubs. RESPIRATORY: Breath sounds equal bilaterally. No accessory muscle use. ABDOMEN/GI: Abdomen soft, slight tenderness to palpation on lower abdomen, bowel sounds present. Incision: Clean, dry and intact. Fundus: Firm, non-tender at umbilicus. GENITOURINARY: Light to moderate bleeding. EXTREMITIES: No cyanosis or edema, non-tender, without signs of DVT. Medications and IVs Current Medications Medications (Trade) Dose Ordered Sig/Piyush Route Start Time Stop Time Status Last Admin Lactated Ringer's 1,000 ml @ 150 mls/hr Q6H40M IV 04/02/17 11:00 04/02/17 12:18 Cefazolin Sodium/ Dextrose 50 ml @ 100 mls/hr DIRECTOR OF OCCUPATIONAL HEALTH IV 04/02/17 11:30 04/06/17 11:29 04/02/17 12:17 (Bicitra Liq) 30 ml DIRECTOR OF OCCUPATIONAL HEALTH PO 04/02/17 12:00 04/06/17 11:59 04/02/17 12:17 (NS Flush) 2 ml BID IV FLUSH 04/02/17 21:00 (NS Flush) 2 ml UNSCH PRN IV FLUSH 04/02/17 14:15 (Mylicon Chew) 80 mg QID PRN PO 04/02/17 14:15 04/04/17 07:46 (Percocet 5-325 Mg) 1 tab Q4H PRN PO 04/02/17 14:15 (Percocet 5-325 Mg) 2 tab Q4H PRN PO 04/02/17 14:15 (Zofran Inj) 4 mg Q6H PRN IV PUSH 04/02/17 14:15 (Benadryl) 25 mg Q6H PRN PO 04/02/17 15:45 (Benadryl Inj) 25 mg Q6H PRN IV 04/02/17 17:00 04/02/17 16:42 (Toradol) 10 mg Q6H PRN PO 04/03/17 08:15 04/07/17 08:14 04/04/17 02:54 (Tylenol) 650 mg Q6HR PRN PO 04/03/17 08:15 04/04/17 07:46 (Americaine 20% Top Spr) 1 spray Q4H PRN TOPICAL 04/03/17 12:00 (Tucks Pads) 1 applic QID PRN TOPICAL 04/03/17 12:00 04/03/17 14:17 (Kim-Colace) 2 tab Q12H PRN PO 04/03/17 12:00 04/03/17 14:17 Assessment/Plan Problem List: (1) 39 weeks gestation of ICD Codes: Z3A.39 - 39 weeks gestation of (2) Previous section ICD Codes: Z98.891 - History of uterine scar from previous surgery Assessment and Plan 21y/o female who is postop day # 2 s/p repeat . -Continue routine care. -Patient would like to avoid narcotics due to past history of IV drug abuse, continue PO Toradol and Tylenol. -Encouraged OOB. Advised pelvic rest for 6 wks. will need follow-up appointment in 1 week for incision check. -Re: ctrl, she would like discussed her options at her follow-up appointment. -Anticipate discharge tomorrow pending clinical course. -Of note, baby will be taken for adoption. dw Dr. Elaina MD Discharge Planning anticipate discharge tomorrow, pending clinical course Zahira Brown MD R1 Apr 04, 2017 09:14
[2017-04-04 16:07] VITALS: BP 127/85; PULSE 64; RESP 16; TEMP 98.8
[2017-04-04] MEDS: SODIUM CHLORIDE 0.9% FLUSH 10 ML FLUSH IV FLUSH SCH (20:53)
[2017-04-04 22:00] VITALS: BP 113/73; PULSE 56; RESP 18; TEMP 98.1
[2017-04-05] MEDS: KETOROLAC TROMETHAMINE 10 MG TAB PO PRN ×2 (03:24→10:03)
[2017-04-05] MEDS: ACETAMINOPHEN 325 MG TAB PO PRN ×2 (03:25→10:04)
--- NOTE | 2017-04-05 07:49 | HHI.DCPOC ---
Discharge Care Plan Diagnosis: (1) Delivery by section of full-term infant (2) Previous section Report Symptoms to Your Doctor -Temperature above 100.5 degrees -Redness, of incision or excessive or foul smelling drainage -Unusual pain or calf pain -Increased vaginal bleeding -Painful or difficulty urinating -Feelings of extreme sadness or anxiety after 2 weeks Goals to Promote Your Health * To prevent worsening of your condition and complications * To maintain your health at the optimal level Directions to Meet Your Goals Take your medications as prescribed Follow your dietary instruction Follow activity as directed Ensure plenty of rest for recovery Drink fluids for hydration Keep your appointments as scheduled Take your immunizations and boosters as scheduled If your symptoms worsen call your PCP, if no PCP go to Urgent Care Center or Emergency Room Smoking is Dangerous to Your Health. Avoid second hand smoke Call the 24-hour crisis hotline for domestic abuse at Savannah Wiley MD R2 Apr 05, 2017 07:49
[2017-04-05] MEDS ORDERED: KETO10 PO (08:28)
[2017-04-05] MEDS ORDERED: ACET1TAB86 PO (08:28)
--- NOTE | 2017-04-05 08:47 | HHI.OB ---
Subjective Post Operative Day: 3 Remarks Pt seen and examined this morning. Postoperative day # 3. AFVSS overnight. Incision not draining. Abdominal pain improved wiht Toradol and Tylenol PRN. Decreased lochia. Denies dysuria. No breast tenderness. Appetite good. No nausea or vomiting. Ambulating well. Denies calf pain or shortness of breath. Otherwise, she is doing well this morning and has no other concerns. Objective Vitals/I&O Vital Signs Date Time Temp Pulse Resp B/P (MAP) Pulse Ox O2 Delivery O2 Flow Rate FiO2 04/04/17 22:41 18 04/04/17 22:41 18 04/04/17 22:00 56 18 04/04/17 22:00 113/73 (86) 04/04/17 22:00 98.1 04/04/17 16:07 98.8 64 16 127/85 (99) Result Diagram: 04/03/17 0348 04/03/17 0955 Objective Remarks GENERAL: Well-nourished, well-developed female, no apparent distress. CARDIOVASCULAR: Normal s1 and s2. Regular rate and rhythm without murmurs, gallops, or rubs. RESPIRATORY: Breath sounds equal bilaterally. No accessory muscle use. ABDOMEN/GI: Abdomen soft, slight tenderness to palpation on lower abdomen, bowel sounds present. Incision: Clean, dry and intact. Fundus: Firm, non-tender below umbilicus. GENITOURINARY: Light to moderate bleeding. EXTREMITIES: No cyanosis or edema, non-tender, without signs of DVT. Medications and IVs Current Medications Medications (Trade) Dose Ordered Sig/Piyush Route Start Time Stop Time Status Last Admin Lactated Ringer's 1,000 ml @ 150 mls/hr Q6H40M IV 04/02/17 11:00 04/02/17 12:18 Cefazolin Sodium/ Dextrose 50 ml @ 100 mls/hr ROLL TUBE SETTER IV 04/02/17 11:30 04/06/17 11:29 04/02/17 12:17 (Bicitra Liq) 30 ml ROLL TUBE SETTER PO 04/02/17 12:00 04/06/17 11:59 04/02/17 12:17 (NS Flush) 2 ml BID IV FLUSH 04/02/17 21:00 (NS Flush) 2 ml UNSCH PRN IV FLUSH 04/02/17 14:15 (Mylicon Chew) 80 mg QID PRN PO 04/02/17 14:15 04/04/17 07:46 (Percocet 5-325 Mg) 1 tab Q4H PRN PO 04/02/17 14:15 (Percocet 5-325 Mg) 2 tab Q4H PRN PO 04/02/17 14:15 (Zofran Inj) 4 mg Q6H PRN IV PUSH 04/02/17 14:15 (Benadryl) 25 mg Q6H PRN PO 04/02/17 15:45 04/05/17 01:21 (Benadryl Inj) 25 mg Q6H PRN IV 04/02/17 17:00 04/02/17 16:42 (Toradol) 10 mg Q6H PRN PO 04/03/17 08:15 04/07/17 08:14 04/05/17 03:24 (Tylenol) 650 mg Q6HR PRN PO 04/03/17 08:15 04/05/17 03:25 (Americaine 20% Top Spr) 1 spray Q4H PRN TOPICAL 04/03/17 12:00 (Tucks Pads) 1 applic QID PRN TOPICAL 04/03/17 12:00 04/03/17 14:17 (Kim-Colace) 2 tab Q12H PRN PO 04/03/17 12:00 04/03/17 14:17 Assessment/Plan Problem List: (1) 39 weeks gestation of ICD Codes: Z3A.39 - 39 weeks gestation of Status: Resolved (2) Previous section ICD Codes: Z98.891 - History of uterine scar from previous surgery Status: Acute Assessment and Plan 21 y/o female who is postop day # 3 s/p repeat . -Continue routine postoperative care. -Patient would like to avoid narcotics due to past history of IV drug abuse, continue PO Toradol and Tylenol at discharge. -Encouraged OOB. Advised pelvic rest for 6 wks. will need follow-up appointment in 1 week for incision check. -Re: ctrl, she would like non-hormonal IUD -Discharge today to [facility] per pt. -Of note, baby will be adopted. pam Lynn MD Discharge Planning Discharge today to home/[facility] Savannah Wiley MD R2 Apr 05, 2017 08:47
[2017-04-05] MEDS: DOCUSATE SODIUM 50 MG/SENNA 8.6 MG TAB PO PRN (10:04)
[2017-04-05 11:00] VITALS: BP 140/86; PULSE 53; RESP 20; TEMP 98.3
[2017-04-07 13:08] LABS: OBMETHADONE UR NEG (NEG); PHENCYCLIDINE URINE NEG (NEG)
[2017-04-07 13:09] LABS: BATH SALTS (MDPV) UR NEG (NEG); ECSTASY (MDMA) UR NEG (NEG); GABAPENTIN UR NEG (NEG); HEROIN (6-ACETYLMORPHINE) UR NEG (NEG); HYDROMORPHONE U NEG (NEG); K2 SPICE UR NEG (NEG)
[2017-04-16] MEDS ORDERED: IBUP-232 PO (15:23)
[2017-05-06] MEDS ORDERED: METR-1 PO (14:03)
[2017-05-06] MEDS ORDERED: LEVO1IUD4 (14:03)
== END 2017-04-05 13:30 | disposition home or self-care (01) | DRG 765 ==
LOC: H2EB 09:52 → H1EA 14:58
PROVIDERS: ADMIT Obstetrics & Gynecology; ATTEND Obstetrics & Gynecology
PROC: 10D00Z1 Extraction of Products of Conception, Low, Open Approach (ICD-10-PCS; principal; 2017-04-02)
DX: O34.211 Maternal care for low transverse scar from previous cesarean delivery (principal); O99.324 Drug use complicating childbirth; Z37.0 Single live birth; Z3A.39 39 weeks gestation of pregnancy; F11.10 Opioid abuse, uncomplicated
CPT/HCPCS: 59025; 80053; 80307; 81001; 85025; 86850; 86900; 86901; G0481; J0690; J1200; J1885; J2274; J2590; J7120; Q0163